=== PATIENT | female | born 1995 | race Caucasian/White ===

== ENCOUNTER → 2025-05-23 15:01 | Outpatient (REF) | payer OTHER, SELFPAY | LOC: PNTC 15:01 | PROVIDERS: ATTENDING PHYSICIAN Student in an Organized Health Care Education/Training Program | DX: O99.210 Obesity complicating pregnancy, unspecified trimester (principal) | CPT/HCPCS: 76805 ==

== ENCOUNTER → 2025-06-27 06:52 | Outpatient (REF) | payer OTHER, SELFPAY | LOC: PNTC 06:52 | PROVIDERS: ATTENDING PHYSICIAN Student in an Organized Health Care Education/Training Program | DX: O99.210 Obesity complicating pregnancy, unspecified trimester (principal) | CPT/HCPCS: 76811; 76817 ==

== ENCOUNTER → 2025-07-11 11:07 | Outpatient (REF) | payer OTHER, SELFPAY | LOC: PNTC 11:07 | PROVIDERS: ATTENDING PHYSICIAN Obstetrics & Gynecology | DX: O99.212 Obesity complicating pregnancy, second trimester (principal); Z36.2 Encounter for other antenatal screening follow-up | CPT/HCPCS: 76815 ==

== ENCOUNTER 2025-07-21 17:40 | Observation (INO) | payer OTHER, SELFPAY ==
[2025-07-21 18:18] VITALS: BP 118/55; BMI 42.2
[2025-07-21 19:05] LABS: Urine Character Slightly Cloudy (Clear)
[2025-07-21 19:18] LABS: Urine Squamous Cell 0-2 /LPF (Few)
[2025-07-21 19:19] LABS: Urine Red Blood Cell 40-50 /HPF (0-2); Urine White Cell 0-2 /HPF (0-5)
== END 2025-07-21 20:00 | disposition home or self-care (01) ==
LOC: LDRP 17:40
PROVIDERS: ADMITTING PHYSICIAN Student in an Organized Health Care Education/Training Program
DX: O23.42 Unspecified infection of urinary tract in pregnancy, second trimester (principal); N39.0 Urinary tract infection, site not specified; Z3A.24 24 weeks gestation of pregnancy; R31.9 Hematuria, unspecified; O99.212 Obesity complicating pregnancy, second trimester; Z87.440 Personal history of urinary (tract) infections; Z80.3 Family history of malignant neoplasm of breast
CPT/HCPCS: 81003; 81015; 87086; G0378

== ENCOUNTER → 2025-07-24 15:09 | Outpatient (REF) | payer OTHER, SELFPAY | LOC: PNTC 15:09 | PROVIDERS: ATTENDING PHYSICIAN Student in an Organized Health Care Education/Training Program | DX: O99.212 Obesity complicating pregnancy, second trimester (principal); E66.01 Morbid (severe) obesity due to excess calories | CPT/HCPCS: 76816 ==

== ENCOUNTER → 2025-08-21 15:22 | Outpatient (REF) | payer OTHER, SELFPAY | LOC: PNTC 15:22 | PROVIDERS: ATTENDING PHYSICIAN Student in an Organized Health Care Education/Training Program | DX: O99.213 Obesity complicating pregnancy, third trimester (principal); E66.01 Morbid (severe) obesity due to excess calories | CPT/HCPCS: 76816 ==

== ENCOUNTER → 2025-09-06 07:41 | Outpatient (REF) | payer OTHER, SELFPAY ==
--- NOTE | 2025-09-06 07:26 | PN.DIAED06 ---
Meal Plan - Gestational
- Breakfast
Gestational Diabetes Meal Plan Name: 2000 calories
Breakfast - Total Carbohydrate (grams): 45 (1 carb serving = 15 g)
Breakfast - Starch Carbohydrate: 2 (carbs: starch, milk)
Breakfast - Fruit Carbohydrate: 0 (no fruit or juice before noon)
Breakfast - Milk Carbohydrate: 1
Breakfast - Nonstarchy Vegetables: Yes
Breakfast - Meat/Protein: 1 (1 serving protein = 1 oz or 7 g)
Breakfast - Fat: 2 (1 fat serving = 5 g)
- Morning Snack
Morning Snack - Total Carbohydrate (grams): 30
Morning Snack - Starch Carbohydrate: 1
Morning Snack - Fruit Carbohydrate: 0
Morning Snack - Milk Carbohydrate: 1
Morning Snack - Nonstarchy Vegetables: Yes
Morning Snack - Meat/Protein: 0
Morning Snack - Fat: 0
- Lunch
Lunch - Total Carbohydrate (grams): 45
Lunch - Starch Carbohydrate: 1
Lunch - Fruit Carbohydrate: 1
Lunch - Milk Carbohydrate: 1
Lunch - Nonstarchy Vegetables: Yes
Lunch - Meat/Protein: 2
Lunch - Fat: 2
- Afternoon Snack
Afternoon Snack - Total Carbohydrate (grams): 30
Afternoon Snack - Starch Carbohydrate: 1
Afternoon Snack - Fruit Carbohydrate: 1
Afternoon Snack - Milk Carbohydrate: 0
Afternoon Snack - Nonstarchy Vegetables: Yes
Afternoon Snack - Meat/Protein: 1
Afternoon Snack - Fat: 0
- Dinner
Dinner - Total Carbohydrate (grams): 45
Dinner - Starch Carbohydrate: 2
Dinner - Fruit Carbohydrate: 1
Dinner - Milk Carbohydrate: 0
Dinner - Nonstarchy Vegetables: Yes
Dinner - Meat/Protein: 2
Dinner - Fat: 2
- Evening Snack
Evening Snack - Total Carbohydrate (grams): 45
Evening Snack - Starch Carbohydrate: 1
Evening Snack - Fruit Carbohydrate: 1
Evening Snack - Milk Carbohydrate: 1
Evening Snack - Nonstarchy Vegetables: Yes
Evening Snack - Meat/Protein: 1
Evening Snack - Fat: 0
--- NOTE | 2025-09-06 08:44 | PN.DE ---
Diabetes Education
- -
09/06/2025 GESTATIONAL DIABETES CONSULT
Met with patient today for medical nutrition therapy. She is G2, P1, with an CHARLIE of 11/09/2025
Explained glucose metabolism in body and what occurs during to cause increase blood sugar. Discussed importance of keeping BS well controlled to avoid complications to the baby during and after (macrosomia, hypoglycemia).
Discussed macronutrients, provided with 2000 calorie GDM meal plan.
Discussed physical activity and importance in lowering glucose values, she is not exercising now. Discussed trying to incorporate this to help lower glucose.
She has been keeping track of her BS, her fasting numbers 94 (x3)m 95 (2), 90, 89, and 120 mg/dL. She eats dinner with at 7:30pm then goes to bed directly after with no snack. Wakes up at 5:30PM. Her 2 year old daughter eats around 5pm.
Discussed the possibility of eating around 5pm with her daughter and a snack with her 's dinner, drink a lot of water, and incorporate activity after dinner to help lower BS. She has been snacking on pretzels and commercial peanut butter.
Discussed that pretzels will spike BS and to opt for a PB that has only peanuts as the ingredient.
She presented to the appointment with a new Glucose monitor-declined demonstration. She knows how to check BS, her has T1D. RShe is aware to test FBS and 2 hr pp each meal. Expected results for FBS <95 mg/dl and 2 hr pp <120 mg/dl. Log
sheet provided for her to record results, she will send a 4-day meal log with all her FBG and 2hr Post prandial glucose numbers to this office for review. In addition, [facility]
She was encouraged to reach out should she require insulin.
== END ==
LOC: DES 07:41
PROVIDERS: ATTENDING PHYSICIAN Obstetrics & Gynecology
DX: O24.419 Gestational diabetes mellitus in pregnancy, unspecified control (principal)
CPT/HCPCS: 99078

== ENCOUNTER → 2025-09-17 16:09 | Outpatient (REF) | payer OTHER, SELFPAY | LOC: PNTC 16:09 | PROVIDERS: ATTENDING PHYSICIAN Student in an Organized Health Care Education/Training Program | DX: O99.213 Obesity complicating pregnancy, third trimester (principal); E66.01 Morbid (severe) obesity due to excess calories; O24.414 Gestational diabetes mellitus in pregnancy, insulin controlled | CPT/HCPCS: 59025; 76816 ==

== ENCOUNTER → 2025-09-24 08:05 | Outpatient (REF) | payer OTHER, SELFPAY | LOC: PNTC 08:05 | PROVIDERS: ATTENDING PHYSICIAN Student in an Organized Health Care Education/Training Program | DX: O24.414 Gestational diabetes mellitus in pregnancy, insulin controlled (principal); O99.213 Obesity complicating pregnancy, third trimester | CPT/HCPCS: 59025 ==

== ENCOUNTER → 2025-10-01 15:42 | Outpatient (REF) | payer OTHER, SELFPAY | LOC: PNTC 15:42 | PROVIDERS: ATTENDING PHYSICIAN Obstetrics & Gynecology | DX: O99.213 Obesity complicating pregnancy, third trimester (principal); O24.410 Gestational diabetes mellitus in pregnancy, diet controlled | CPT/HCPCS: 59025; 76815 ==